=== PATIENT | female | born 1990 | race Two or more races ===

== ENCOUNTER → 2019-11-13 | Emergency (ER) | payer OTHER ==
[~2019-11-13] VITALS: Ht 167.6 cm; Wt 69.4 kg
== END | disposition home or self-care (01) ==
LOC: ER 19:06
DX: O26.891 Other specified pregnancy related conditions, first trimester (principal); S70.01XA Contusion of right hip, initial encounter; W01.198A Fall on same level from slipping, tripping and stumbling with subsequent striking against other object, initial encounter; Y93.89 Activity, other specified; Y92.828 Other wilderness area as the place of occurrence of the external cause; Y99.8 Other external cause status; Z3A.13 13 weeks gestation of pregnancy

== ENCOUNTER 2019-12-20 17:02 | Emergency (ER) | payer OTHER ==
[~2019-12-20] VITALS: Ht 167.6 cm; Wt 69.9 kg
[2019-12-20] MEDS ORDERED: SINGULAIR 4MG4 MG (17:24)
[2019-12-20] MEDS ORDERED: PRENATABS RX T1 EACH (17:25)
== END 2019-12-20 22:32 | disposition home or self-care (01) ==
LOC: ER 17:02
DX: O26.892 Other specified pregnancy related conditions, second trimester (principal); S30.0XXA Contusion of lower back and pelvis, initial encounter; Z3A.20 20 weeks gestation of pregnancy; W18.2XXA Fall in (into) shower or empty bathtub, initial encounter; Y93.E1 Activity, personal bathing and showering; Y92.012 Bathroom of single-family (private) house as the place of occurrence of the external cause; Y99.8 Other external cause status

== ENCOUNTER 2020-02-18 20:04 | Outpatient (CLI) | payer OTHER ==
[~2020-02-18 20:04] MED LIST: PRENATABS RX T1 EACH; SINGULAIR 4MG4 MG
== END 2020-02-19 13:01 | disposition home or self-care (01) ==
LOC: OBS/DEL 20:04
PROVIDERS: ATTEND Specialist
DX: O26.892 Other specified pregnancy related conditions, second trimester (principal); R10.2 Pelvic and perineal pain; O20.0 Threatened abortion

== ENCOUNTER 2020-05-03 14:00 | Inpatient (IN) | payer OTHER ==
[~2020-05-03] VITALS: Ht 167.6 cm; Wt 77.6 kg
[2020-05-12] MEDS ORDERED: FOLIC ACID0.8 MG PO (20:59)
[2020-05-12] MEDS ORDERED: VALTREX1000 MG PO (23:20)
== END 2020-05-15 13:44 | DRG 807 ==
LOC: LDR 05-12 20:09 → OB/GYN 05-13 03:23 → LDR 05-18 14:00
PROVIDERS: ADMIT Specialist; ATTEND Specialist
PROC: 4A1HXCZ Monitoring of Products of Conception, Cardiac Rate, External Approach (ICD-10-PCS; 2020-05-12)
PROC: 10E0XZZ Delivery of Products of Conception, External Approach (ICD-10-PCS; principal; 2020-05-13)
PROC: 0HQ9XZZ Repair Perineum Skin, External Approach (ICD-10-PCS; 2020-05-13)
DX: O70.1 Second degree perineal laceration during delivery (principal); Z37.0 Single live birth; Z3A.39 39 weeks gestation of pregnancy; Z22.330 Carrier of Group B streptococcus

== ENCOUNTER 2021-03-12 17:08 | Outpatient (CLI) | payer OTHER ==
[~2021-03-12 17:08] MED LIST changes: +FOLIC ACID0.8 MG PO; +VALTREX1000 MG PO
== END 2021-03-12 21:43 | disposition home or self-care (01) ==
LOC: OBS/DEL 17:08
PROVIDERS: ATTEND Specialist
DX: O26.893 Other specified pregnancy related conditions, third trimester (principal); Z04.3 Encounter for examination and observation following other accident; Z3A.30 30 weeks gestation of pregnancy; W18.39XA Other fall on same level, initial encounter; Y93.89 Activity, other specified; Y92.89 Other specified places as the place of occurrence of the external cause; Y99.8 Other external cause status

== ENCOUNTER 2021-03-18 11:36 | Inpatient (IN) | payer OTHER ==
[~2021-03-18] VITALS: Ht 167.6 cm; Wt 77.1 kg
== END 2021-03-19 10:28 | disposition home or self-care (01) | DRG 833 ==
LOC: LDR 11:36
PROVIDERS: ADMIT Specialist; ATTEND Specialist
DX: O21.2 Late vomiting of pregnancy (principal); O99.283 Endocrine, nutritional and metabolic diseases complicating pregnancy, third trimester; E86.0 Dehydration; R19.7 Diarrhea, unspecified; Z3A.31 31 weeks gestation of pregnancy; Z20.822 Contact with and (suspected) exposure to COVID-19

== ENCOUNTER 2021-05-08 17:20 | Inpatient (IN) | payer OTHER ==
[~2021-05-08] VITALS: Ht 167.6 cm; Wt 78.5 kg
[2021-05-08] MEDS ORDERED: VALTREX1000 MG (19:35)
== END 2021-05-10 15:58 | disposition home or self-care (01) | DRG 807 ==
LOC: OB/GYN 17:20 → LDR 17:20 → OB/GYN 22:20 → SURH 05-11 13:08
PROVIDERS: ADMIT Specialist; ATTEND Specialist
PROC: 10E0XZZ Delivery of Products of Conception, External Approach (ICD-10-PCS; principal; 2021-05-08)
PROC: 0HQ9XZZ Repair Perineum Skin, External Approach (ICD-10-PCS; 2021-05-08)
PROC: 4A1HXFZ Monitoring of Products of Conception, Cardiac Rhythm, External Approach (ICD-10-PCS; 2021-05-08)
DX: O70.0 First degree perineal laceration during delivery (principal); Z37.0 Single live birth; Z3A.38 38 weeks gestation of pregnancy